=== PATIENT | female | born 1985 | race Two or more races ===

== ENCOUNTER 2020-08-23 05:50 | Day surgery (SDC) | payer OTHER ==
[2020-08-23] MEDS ORDERED: NEURONTIN600 M1 PO (14:38)
[2020-08-23] MEDS ORDERED: PERCOCET 5-3251 EACH PO (14:38)
[2020-08-23] MEDS ORDERED: COLACE100 MG PO (14:38)
== END 2020-08-23 17:50 | disposition home or self-care (01) ==
LOC: CIR.AMB 05:50
PROVIDERS: ATTEND Surgery
DX: K43.2 Incisional hernia without obstruction or gangrene (principal); Z20.828 Contact with and (suspected) exposure to other viral communicable diseases